=== PATIENT | female | born 1955 | race Caucasian/White ===

== ENCOUNTER 2016-10-31 09:11 | Inpatient (IN) | payer BC ==
[~2016-10-31] VITALS: Ht 162.6 cm; Wt 49.9 kg
[2016-10-31] MEDS ORDERED: SODIUM CHLORIDE 0.9% 1000ML 1,000 ML IV ONE (09:50)
[2016-10-31] MEDS ORDERED: SODIUM CHLORIDE 0.9% 1000ML 1,000 ML IV STA (09:50)
--- NOTE | 2016-10-31 10:14 | EMERGENCY ROOM VISIT NOTE ---
History Report prepared by Quique: Rivas Walker Under the Supervision of: Dr. Cory Jarrett M.D. First contact with patient: 09:39 Chief Complaint: PSYCHIATRIC PROBLEMS Stated Complaint: MANIC,PANIC ATTACKS,DEPRESSION History of Present Illness The patient is a 61 year old female who presents to the Emergency Room with complaints of worsening panic attacks for the past few weeks. The patient also complains of anxiety and fear, manic feelings, nausea, and decreased appetite. The patient has a history of psychiatric disorders and has been on varying medications. She notes that she her symptoms have not been this severe in the past. She has been hospitalized for her conditions in the past and usually does well with treatment. The patient started Hydrocortisone for a cortisol deficiency 3 months ago. The patient felt like she was doing really well. Then, all of a sudden, the patient started having panic attacks and experiencing the other symptoms. She also notes that she has been losing weight, crying, and not sleeping recently. The patient is taking 15 mg a day of Hydrocortisone and taking other medications as well. She denies any thoughts of trying to hurt herself, chest pain, or shortness of breath. Source of History: patient Onset: past few weeks Position: other (global) Timing: worsening Associated Symptoms: + nausea, No SOB, No chest pain Note: Other associated symptoms: anxiety, fear, manic feelings, decreased appetite, losing weight, crying, not sleeping Denies: any thoughts of trying to hurt herself Review of Systems See HPI for pertinent positives & negatives. A total of 10 systems reviewed and were otherwise negative. Past Medical & Surgical Medical Problems: (1) Anxiety (2) Bunion (3) Depression Old medical records were reviewed. Nurse's notes were reviewed and I agree with. Family History FH: cancer FH: gallbladder disease FH: heart disease FH: hypertension Kidney stone Social History Smoking Status: Never Smoker Alcohol Use: none Marital Status: Housing Status: lives with significant other Occupation Status: employed Current/Historical Medications Scheduled Estradiol (Estradiol), 3 MG TOP HS Hydrocortisone (Cortef), 5 MG PO DAILY Lorazepam (Ativan), 0.5 MG PO Q6H Progesterone (Prometrium), 100 MG SL HS Testosterone Cypionate (Testosterone Cypionate), 1 MG TOP DAILY Thyroid (Nature-Throid), 1 TAB PO QAM Allergies Coded Allergies: No Known Allergies (Unverified , 10/31/16) Physical Exam Vital Signs Date Time Temp Pulse Resp B/P Pulse Ox O2 Delivery O2 Flow Rate FiO2 10/31/16 16:01 83 16 109/58 100 Room Air 10/31/16 11:45 72 18 105/73 98 10/31/16 09:29 36.7 91 18 121/79 99 Room Air Physical Exam General: Teary-eyed, anxious, middle-aged female, no acute distress HEENT: Normal cephalic atraumatic. Pupils are equal round and reactive to light. Scleara anicteric. Extraocular movements are intact. Oropharynx is pink with moist mucous membranes. No swelling of the mouth lips or tongue. Neck: Supple with a midline trachea. No meningeal signs or stiffness, no JVD or bruits. No Stridor. Chest: Clear to auscultation bilaterally. No wheezes or rhonchi. No increased work of breathing. Heart: regular rate and rhythm. Abdomen: Soft nontender, nondistended without rebound guarding or rigidity. Extremities: No cyanosis clubbing or edema. No calf tenderness or assymetry Spine/Back. Non tender to palpation. No CVA tenderness Skin: Good turgor without rashes. Neurologic exam: Cranial nerves two through 12 are intact. Motor and sensation are intact and symmetrical throughout. Psych: Denies suicidal or homicidal ideation. Medical Decision & Procedures Laboratory Results 10/31/16 10:15 Red Blood Count 4.69, Mean Corpuscular Volume 95.9, Mean Corpuscular Hemoglobin 30.5, Mean Corpuscular Hemoglobin Concent 31.8, Mean Platelet Volume 10.1, Neutrophils (%) (Auto) 66.3, Lymphocytes (%) (Auto) 24.1, Monocytes (%) (Auto) 8.1, Eosinophils (%) (Auto) 0.7, Basophils (%) (Auto) 0.7, Neutrophils # (Auto) 4.50, Lymphocytes # (Auto) 1.64, Monocytes # (Auto) 0.55, Eosinophils # (Auto) 0.05, Basophils # (Auto) 0.05 10/31/16 10:15 Test 10/31/16 10:15 White Blood Count 6.80 K/uL (4.8-10.8) Red Blood Count 4.69 M/uL (4.2-5.4) Hemoglobin 14.3 g/dL (12.0-16.0) Hematocrit 45.0 % (37-47) Mean Corpuscular Volume 95.9 fL (80-100) Mean Corpuscular Hemoglobin 30.5 pg (25-34) Mean Corpuscular Hemoglobin Concent 31.8 g/dl (32-36) Platelet Count 284 K/uL (130-400) Mean Platelet Volume 10.1 fL (7.4-10.4) Neutrophils (%) (Auto) 66.3 % Lymphocytes (%) (Auto) 24.1 % Monocytes (%) (Auto) 8.1 % Eosinophils (%) (Auto) 0.7 % Basophils (%) (Auto) 0.7 % Neutrophils # (Auto) 4.50 K/uL (1.4-6.5) Lymphocytes # (Auto) 1.64 K/uL (1.2-3.4) Monocytes # (Auto) 0.55 K/uL (0.11-0.59) Eosinophils # (Auto) 0.05 K/uL (0-0.5) Basophils # (Auto) 0.05 K/uL (0-0.2) RDW Standard Deviation 42.4 fL (36.4-46.3) RDW Coefficient of Variation 12.1 % (11.5-14.5) Immature Granulocyte % (Auto) 0.1 % Immature Granulocyte # (Auto) 0.01 K/uL (0.00-0.02) Anion Gap 4.0 mmol/L (3-11) Est Creatinine Clear Calc Drug Dose 51.1 ml/min Estimated GFR () 78.9 Estimated GFR (Non- 68.1 BUN/Creatinine Ratio 19.1 (10-20) Calcium Level 9.2 mg/dl (8.5-10.1) Total Bilirubin 0.7 mg/dl (0.2-1) Direct Bilirubin 0.1 mg/dl (0-0.2) Aspartate Amino Transf (AST/SGOT) 21 U/L (15-37) Alanine Aminotransferase (ALT/SGPT) 37 U/L (12-78) Alkaline Phosphatase 57 U/L (45-117) Total Protein 6.8 gm/dl (6.4-8.2) Albumin 3.7 gm/dl (3.4-5.0) Lipase 208 U/L (73-393) Thyroid Stimulating Hormone (TSH) < 0.005 uIu/ml (0.300-4.500) Thyroxine (T4) 9.3 mcg/dl (4.5-10.9) Free Triiodothyronine 4.27 pg/ml (2.30-4.20) Random Cortisol 13.82 mcg/dl Ethyl Alcohol mg/dL < 3.0 mg/dl (0-3) Laboratory studies as stated above per my review. Medications Administered Medications (Trade) Dose Ordered Sig/Javy Route Start Time Stop Time Status Last Admin Dose Admin Sodium Chloride 1,000 ml @ 999 mls/hr Q1H1M STAT IV 10/31/16 09:50 10/31/16 10:50 DC 10/31/16 09:50 999 MLS/HR Sodium Chloride (Nss 1000ml) 1,000 ml @ 150 mls/hr Q6H40M ONCE IV 10/31/16 09:50 10/31/16 16:29 DC 10/31/16 11:44 150 MLS/HR ED Course 0946: Past medical records reviewed. The patient was evaluated in room A5, and a complete history and physical examination were performed. 0950: Ordered NSS 1000 ml@ 150 mls/hr IV, NSS 1000 ml @ 999 mls/hr IV. 1305: At this time, I reevaluated the patient and she was doing okay. 1331: At this time, I discussed the patient's case with Dr. Kramer - Urogynaecologist and he asked for further lab tests. 1415: At this time, I reevaluated the patient and she was talking to Urogynaecologist on the phone. 1443: At this time, I discussed the patient's case with Dr. Kramer - Urogynaecologist and we discussed lab results. We discussed decreasing the patient's thyroid from 160 to 130. He noted that he has been in touch with the patient and already updated her on this switch. 1455: At this time, [address] [place] [address] is evaluating the patient in the ED. Medical Decision Differential diagnoses include anxiety, depression, thyroid disease, electrolyte or metabolic abnormality, endocrine process, or toxicological process. This patient comes in as described above. She's had increasing anxiety and depression. She denies suicidal or homicidal ideations. She has been followed by textile engineer and they have been adjusting her TSH and her cortisols levels. she takes hydrocortisone 15 mg a day. This is new in the last couple months. She has not missed any dosages. Multiple blood tests was obtained. Her TSH is low. I did also T3 and T4 levels. With these being on the high end of normal, I think that she is hyperthyroid medications and needs to be cutdown .I discussed this at length with her textile engineer on the phone. Her random cortisol level was within normal limits given the day. The textile engineer had recommended she decrease her level from 162.5 to 1:30 on the thyroid. He has actually been text in her her phone as well. I had [place] our ER psychiatric case manage talked to the patient and she has consulted 3 S. see her for further treatment and evaluation and admission. Consults Time Called: [phone] Consulting Physician: Dr. Kramer - Urogynaecologist Returned Call: [phone] At this time, I discussed the patient's case with Dr. Kramer and he asked for further lab tests. Additional Consults: Time Called: [phone] Consulted Physician: Dr. Kramer - Urogynaecologist Returned Call: [phone] Additional Comments: At this time, I discussed the patient's case with Dr. Kramer and we discussed lab results. We discussed decreasing the patient's thyroid from 160 to 130. He noted that he has been in touch with the patient and already updated her on this switch. Impression Primary Impression: Depression Additional Impression: Anxiety Scribe Attestation The scribe's documentation has been prepared under my direction and personally reviewed by me in its entirety. I confirm that the note above accurately reflects all work, treatment, procedures, and medical decision making performed by me. Departure Information Dispostion [facility] ([address] [place] [address]) Referrals Alexa Sales M.D. (PCP) Problem Qualifiers
[2016-10-31 10:29] LABS: BASO % 0.7 %; BASO ABS # 0.05 K/uL (0-0.2); COMPLETE YES; EOS % 0.7 %; IG% 0.1 %; LYMPH % 24.1 %; LYMPH ABS # 1.64 K/uL (1.2-3.4); MEAN CELL VOLUME 95.9 fL (80-100); MEAN CORPUSCULAR HEMOGLOBIN 30.5 pg (25-34); MEAN CORPUSCULAR HGB CONC 31.8 g/dl (32-36); MEAN PLATELET VOLUME 10.1 fL (7.4-10.4); MONO % 8.1 %; NEUT % 66.3 %; PLATELET COUNT 284 K/uL (130-400); RED BLOOD COUNT 4.69 M/uL (4.2-5.4)
[2016-10-31] MEDS ORDERED: TEST1INJ6 TOP (10:42)
[2016-10-31] MEDS ORDERED: HYDR5TAB PO (10:42)
[2016-10-31] MEDS ORDERED: THYR16.2 PO (10:42)
[2016-10-31] MEDS ORDERED: LORA-741 PO (10:42)
[2016-10-31] MEDS ORDERED: PROG100C6 SL (10:42)
[2016-10-31] MEDS ORDERED: [UNRECOGNIZED DRUG - CODE] TOP (10:42)
[2016-10-31 10:53] LABS: ALT/SGPT 37 U/L (12-78); AST/SGOT 21 U/L (15-37); BLOOD UREA NITROGEN 17 mg/dl (7-18); BUN/CREATININE RATIO 19.1 (10-20); CALCIUM 9.2 mg/dl (8.5-10.1); CARBON DIOXIDE 29 mmol/L (21-32); CHLORIDE 108 mmol/L (98-107); CREATININE 0.91 mg/dl (0.60-1.20); GLUCOSE 95 mg/dl (70-99); POTASSIUM 4.2 mmol/L (3.5-5.1); SODIUM 141 mmol/L (136-145)
[2016-10-31 11:04] LABS: ALKALINE PHOSPHATASE 57 U/L (45-117); THYROID STIMULATING HORMONE < 0.005 uIu/ml (0.300-4.500)
[2016-10-31] MEDS ORDERED: ALUMINUM/MAGNESIUM SUSP 30 ML UDC PO PRN (17:00)
[2016-10-31] MEDS ORDERED: SODIUM CHLORIDE 0.65% NA SOLN 45 ML (OCEAN) PRN (17:00)
[2016-10-31] MEDS ORDERED: hydrOXYzine HCL 25 MG TAB PO PRN (17:00)
[2016-10-31] MEDS ORDERED: MAGNESIUM HYDROXIDE SUSP 30 ML UDC PO PRN (17:00)
[2016-10-31] MEDS ORDERED: NON-FORMULARY MEDICATION SCH ×2 (17:00)
[2016-10-31] MEDS ORDERED: ACETAMINOPHEN 325 MG TAB PO PRN (17:00)
[2016-10-31] MEDS ORDERED: BISMUTH SUBSALICYLATE PER ML OMNICELL CHARGE PO PRN (17:00)
[2016-10-31 17:45] LABS: BENZODIAZEPINE, URINE NEG (NEG); COCAINE,URINE NEG (NEG); PHENCYCLIDINE, URINE NEG (NEG)
[2016-10-31] MEDS ORDERED: THYR1TAB15 PO (17:57)
[2016-10-31] MEDS ORDERED: [UNRECOGNIZED DRUG - CODE] TD (17:57)
[2016-10-31] MEDS ORDERED: ZOLP10TA6 PO (17:57)
[2016-10-31 19:00] VITALS: O2SAT 99
[2016-10-31] MEDS: LORAZEPAM 0.5 MG TAB PO SCH (19:16)
[2016-10-31 20:15] VITALS: BP 117/64; PULSE 76; TEMP 36.7; Ht 162.6 cm; Wt 49.9 kg
[2016-10-31] MEDS ORDERED: PROMETRIUM 100 MG SL SCH (22:00)
[2016-10-31] MEDS ORDERED: NURSING VERBAL MED ORDER ONE (22:00)
[2016-10-31] MEDS: hydrOXYzine HCL 25 MG TAB PO PRN (22:14)
[2016-11-01] MEDS: LORAZEPAM 0.5 MG TAB PO SCH ×4 (00:03→06:57)
[2016-11-01 08:17] VITALS: BP 105/72; PULSE 86; TEMP 37.1
[2016-11-01] MEDS: TESTOSTERONE EXT SCH (08:26)
[2016-11-01] MEDS: HYDROCORTISONE 10 MG TAB PO SCH (08:26)
[2016-11-01] MEDS: THYROID 162.5 MG PO SCH (08:28)
[2016-11-01] MEDS: PROMETRIUM 100 MG SL SCH (08:29)
[2016-11-01] MEDS ORDERED: LORAZEPAM 0.5 MG TAB PO PRN (12:00)
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
[2016-11-01] MEDS: TRAZODONE HCL 50 MG TAB PO SCH (21:47)
[2016-11-01] MEDS: hydrOXYzine HCL 25 MG TAB PO PRN (23:12)
[2016-11-02] MEDS: hydrOXYzine HCL 25 MG TAB PO PRN ×3 (00:32→22:37)
[2016-11-02 07:05] VITALS: BP_SYST 78; BP_SYST 85; BP_DIAS 50; BP_DIAS 58; PULSE 65; TEMP 36.8
[2016-11-02] MEDS: HYDROCORTISONE 10 MG TAB PO SCH (08:25)
[2016-11-02] MEDS: THYROID 162.5 MG PO SCH (08:26)
[2016-11-02] MEDS: PROMETRIUM 100 MG SL SCH (08:27)
[2016-11-02] MEDS: TESTOSTERONE EXT SCH (08:27)
--- NOTE | 2016-11-02 13:08 | Psychiatric Progress Notes ---
Progress Note Date of Service Nov 02, 2016. Interval History Shelley Oneil is a 61-year-old female who currently lives in [place], [place] with her . She was admitted on a 201 commitment. Patient is admitted from home after presenting to ER for a mental health evaluation. She has been increasingly depressed and anxious over the past 2 weeks to the point of being unable to function/care for herself. The patient was brought to the ED by her sisters. Information provided by the patient is considered to be reliable. Chief Complaint "I'm really anxious". Subjective Patient was seen & assessed interval progress reviewed with treatment team. Patient reports continue elevated anxiety. She did not sleep well even though took Trazodone and Vistaril. She reports that she was unable to stay at home alone prior to admission. She reports "I did not feel safe by myself." She denies suicidal intention or plan but would start screaming out loud "I can't do this anymore" when she was a lone. She is wringing her hands and describes mood as "anxious and really bad." She is having difficulty making decisions about medications and if fearful that she will have side effects and is most concerned about weight gain. We reviewed past medications again and says that she believes she took buspar in the past and "wired me up." She thinks she may have tried Cymbalta last year but in combination with Effexor. We received a med list from Dr. Quick which indicates that she was prescribed Nardil but didn' t start and was taking Ambien 10 mg as needed. The patient was only sleeping 2 hours/night and then taking another Ambien and sleeping another 2 hours. However for the 4 nights before she came to the hospital she was sleeping less than this. Review of Systems Constitutional: No chills, No fatigue, No fever, No problem reported, No sweats , No weakness, No weight loss Cardiovascular: No PND, No chest pain, No claudication, No edema, No orthopnea , No palpitations, No problem reported Abdomen: No GI bleeding, No constipation, No diarrhea, No nausea, No pain, No problem reported, No vomiting Psychiatric: + anxiety, + depression symptoms, + insomnia Sleep Information Total Hours of Sleep: 5.50 Meal Information Percent of Breakfast Consumed: 100 Percent of Lunch Consumed: 75 Percent of Dinner Consumed: 75 Mental Status Exam During interview pt is: alert and oriented Appearance: appropriately dressed, appropriately groomed Eye contact is: good Motor behavior is: steady gait & station, no abnormal motor movements Speech: normal in rate, rhythm & volume Affect: tearful, anxious, constricted Mood is: depressed, anxious Thought process: goal directed, linear, logical, clear, coherent Suicidal thought are: denied (states "I can't do this any more." ), Plan: denied, Intent: denied Homicidal thoughts are: denied Hallucinations: denies auditory, denies visual Cognition: memory grossly intact, attention grossly intact Intelligence estimated to be: average Insight: impaired Judgement: impaired Summary of Past History Prozac Zoloft Effexor [place] Depakote, Amitriptyline Wellbutrin Seroquel Ambien Klonopin Ativan Impression Patient is a 61 year old female with history of anxiety and depression and eating disorder. She has been struggling with sleep over the past 2 years and anxiety has increased over the past several months and over the past 2 weeks has been elevated to point that she has been unable to function at home. She is not eating or sleeping. She has been in contact with her rn women services and psychiatrist with some adjustment of medication, however her symptoms have continued to worse. She requires inpatient treatment due to inability or care of herself. It is unclear at this time how her endocrine issues and eating disorder are affecting her presentation. The ER physician consulted her rn women services, however the patient is still concerned that she is not being given what he recommenced. Complex case; Anxiety Panic Disorder Depression Eating disorder, unspecified Plan (1) Anxiety 11/01 Patient admitted to locked unit with q 15 minute safety checks She will need a family meeting Coordinate care without patient providers. She wishes us to contact her rn women services to clarify medications as feels she is supposed to be taking more cortef and less thyroid medications. Tired to call office put it was closed for the day. [phone]. Vistaril or Ativan prn for anxiety She is reluctant to take any medications that will make her feel tired or have risk of weight gain. Patient agrees to retrial Trazodone for sleep tonight as this medication worked well in the past but then stop working several months ago. 11/02 Again reviewed past medications. Discussed Cymbalta or Buspar as possible options. Patient felt buspar make her feel wired in the past and that if she took cymbalta it was in combination with Effexor and it didn't seem helpful. She is willing to retrial Cymbalta since this medication is weight neutral. Discussed remeron but patient declined due to risk of weight gain. Discussed risks, benefits and alternatives for Cymbalta including but not limited to black box warning for suicidality. Will start at 30 daily. Patient has an appointment for neurofeedback on November 08 and is hoping this will be effective or insomnia. Will hold thyroid medication tomorrow. Patient agrees. family meeting with on phone today. (2) Depression Patient should be encouraged to participate in groups and individual counseling and to work on healthy coping skills. 11/02 - Patient is willing to start Cymbalta see plan above (3) Eating disorder 11/01 Monitor patient's intake Patient is interested in seeing an eating disorder therapist. Will offer dietary consult. Discharge / Aftercare Planning Primary Care Physician: Name: Dr Jeannie Davis; [facility]rapist: Name: Stefany Dorantes [place], [place] Date of Appointment: November 07, 2016 Time of Appointment: 2pm Visit Code E&M Code: 50882 Inventory Assets Strengths: willingness for treatment knowledgeable about treatment options Supportive family Needs: inpatient treatment and stabilization Risk Factors Assessment : Yes Health problems: Yes Mental Health Diagnoses: Yes Substance use disorders: No Previous attempt: No Family history of suicide: No Previous psychiatric stay: Yes Hopelessness: No Smoker: No Protective Factors Assessment Sikh beliefs: No : Yes Responsible for young children: No Employed: Yes Stable relationships: Yes Supportive family: Yes Good rapport with provider: Yes Data Vital Signs Last 24 Hrs: Date Time Temp Pulse Resp B/P Pulse Ox O2 Delivery O2 Flow Rate FiO2 11/02/16 07:05 36.8 65 18 78/50 65 85/58 Meds Administered Last 24 Hrs: Meds Administered (Past 24Hrs) Medications (Trade) Dose Ordered Sig/Javy Route Start Time Stop Time Status Last Admin Dose Admin Hydroxyzine HCl (Vistaril Tab) 50 mg HSZ PRN PO 10/31/16 17:00 11/30/16 16:59 11/02/16 00:32 50 MG Hydrocortisone (Cortef Tab) 5 mg DAILY PO 11/01/16 09:00 12/01/16 08:59 11/02/16 08:25 5 MG Lorazepam (Ativan Tab) 0.5 mg Q6H PO 10/31/16 18:00 11/01/16 08:57 DC 10/31/16 19:16 0.5 MG Non-Formulary Medication 1 ea DAILY EXT 11/01/16 09:00 12/01/16 08:59 11/02/16 08:27 1 EA Thyroid (Nature-Throid) 162.5 mg DAILY PO 11/01/16 09:00 12/01/16 08:59 11/02/16 08:26 162.5 MG Non-Formulary Medication (Non-Formulary Patient'S Own Med) 1 ea QAM SL 11/01/16 09:00 12/01/16 08:59 11/02/16 08:27 1 EA Lorazepam (Ativan Tab) 0.5 mg Q6H PRN PO 11/01/16 12:00 12/01/16 11:59 11/01/16 15:41 0.5 MG Trazodone HCl (Desyrel Tab) 50 mg HS PO 11/01/16 22:00 12/01/16 21:59 11/01/16 21:47 50 MG Problem Qualifiers (1) Depression: Depression Type: major depressive disorder Major depression recurrence: recurrent Major depression episode severity: unspecified
[2016-11-02] MEDS ORDERED: DULOXETINE (CYMBALTA) 30 MG CAP PO ONE (13:43)
[2016-11-02] MEDS ORDERED: NON-FORMULARY MEDICATION SCH (15:30)
[2016-11-02] MEDS: ESTRADIOL EXT SCH (21:06)
[2016-11-02] MEDS: TRAZODONE HCL 50 MG TAB PO SCH (21:07)
[2016-11-03 07:09] VITALS: BP_SYST 76; BP_SYST 93; BP_DIAS 46; BP_DIAS 58; PULSE 56; PULSE 73; TEMP 36.9
[2016-11-03] MEDS: HYDROCORTISONE 10 MG TAB PO SCH (08:46)
[2016-11-03] MEDS: DULOXETINE (CYMBALTA) 30 MG CAP PO SCH (08:46)
[2016-11-03] MEDS: PROMETRIUM 100 MG SL SCH (08:47)
[2016-11-03] MEDS: TESTOSTERONE EXT SCH (08:51)
[2016-11-03] MEDS ORDERED: ESTRADIOL EXT SCH (09:00)
--- NOTE | 2016-11-03 09:17 | Psychiatric Progress Notes ---
Progress Note Date of Service Nov 03, 2016. Interval History Shelley Oneil is a 61-year-old female who currently lives in [place], [place] with her . She was admitted on a 201 commitment. Patient is admitted from home after presenting to ER for a mental health evaluation. She has been increasingly depressed and anxious over the past 2 weeks to the point of being unable to function/care for herself. The patient was brought to the ED by her sisters. Information provided by the patient is considered to be reliable. Chief Complaint "Last night I felt the dread coming on". Subjective Patient was seen & assessed interval progress reviewed with nursing. Staff report she had a meeting with her and they reviewed her stressors and symptoms. They believe her poor sleep is one of her primary triggers. Sleep is improved here, got 6.25 hours last night. She is going to groups and engaged in treatment, and is tolerating Cymbalta well. In the meeting her guns were discussed as well as recommendations to secure them until she is stable, and both she and her refused to do so, feeling that it was not necessary. Today she says she was doing a bit better, but then last night "felt the dread coming on," which is what usually causes her to "get hysterical, don't want to get out of bed, that's been what I've been dealing with." She called her and he encouraged her to keep working on her symptoms, as she has not been able to function at home. She wondered if the Cymbalta "gave me anxiety," although she admits the symptoms are the same ones she has been dealing with for years with her anxiety. She expresses frustration that her symptoms were well controlled on Effexor for years "but then it just stopped working, and now nothing works." She reviews her history, including worsening of symptoms when she started steroids and stimulants. Sleep Information Total Hours of Sleep: 6.25 Meal Information Percent of Breakfast Consumed: 100 Percent of Lunch Consumed: 100 Percent of Dinner Consumed: 90 Mental Status Exam During interview pt is: alert and oriented Appearance: appropriately dressed, appropriately groomed Eye contact is: good Motor behavior is: steady gait & station, psychomotor agitation (wringing hands ) Speech: normal in rate, rhythm & volume Affect: anxious, constricted Mood is: depressed, anxious Thought process: goal directed, linear, logical, clear, coherent Suicidal thought are: denied (but feels unable to leave the hospital as cannot function or cope), Plan: denied, Intent: denied Homicidal thoughts are: denied Hallucinations: denies auditory, denies visual Cognition: memory grossly intact, attention grossly intact Intelligence estimated to be: average Insight: impaired Judgement: impaired Summary of Past History Prozac Zoloft Effexor House Depakote, Amitriptyline Wellbutrin Seroquel Ambien Klonopin Ativan Impression Patient is a 61 year old female with history of anxiety and depression and eating disorder. She has been struggling with sleep over the past 2 years and anxiety has increased over the past several months and over the past 2 weeks has been elevated to point that she has been unable to function at home. She is not eating or sleeping. She has been in contact with her field nurse case manager and psychiatrist with some adjustment of medication, however her symptoms have continued to worse. She requires inpatient treatment due to inability or care of herself. It is unclear at this time how her endocrine issues and eating disorder are affecting her presentation. The ER physician consulted her field nurse case manager. Complex case; Anxiety Panic Disorder Depression Eating disorder, unspecified Plan (1) Anxiety 11/01 Patient admitted to locked unit with q 15 minute safety checks She will need a family meeting Coordinate care without patient providers. She wishes us to contact her field nurse case manager to clarify medications as feels she is supposed to be taking more cortef and less thyroid medications. Tired to call office put it was closed for the day. [phone]. Vistaril or Ativan prn for anxiety She is reluctant to take any medications that will make her feel tired or have risk of weight gain. Patient agrees to retrial Trazodone for sleep tonight as this medication worked well in the past but then stop working several months ago. 11/02 Again reviewed past medications. Discussed Cymbalta or Buspar as possible options. Patient felt buspar make her feel wired in the past and that if she took cymbalta it was in combination with Effexor and it didn't seem helpful. She is willing to retrial Cymbalta since this medication is weight neutral. Discussed remeron but patient declined due to risk of weight gain. Discussed risks, benefits and alternatives for Cymbalta including but not limited to black box warning for suicidality. Will start at 30 daily. Patient has an appointment for neurofeedback on November 08 and is hoping this will be effective or insomnia. Will hold thyroid medication tomorrow. Patient agrees. family meeting with on phone today. 11/03 Continue duloxetine 30mg daily. Tolerating well. May increase to 60mg daily tomorrow. (2) Depression Patient should be encouraged to participate in groups and individual counseling and to work on healthy coping skills. 11/02 - Patient is willing to start Cymbalta see plan above (3) Eating disorder 11/01 Monitor patient's intake Patient is interested in seeing an eating disorder therapist. Will offer dietary consult. (4) Cortisol deficiency Continue home meds. 11/03 - pt states home meds are still not right, as she takes everything in the AM. Corrected med rec and will move to am. Discharge / Aftercare Planning Primary Care Physician: Name: Dr Jeannie Davis; [facility] Psychiatrist: Name: Dr. Сергей Quick [place] Therapist: Name: Stefany Dorantes [place], [place] Date of Appointment: November 07, 2016 Time of Appointment: 2pm Visit Code E&M Code: 77814 Inventory Assets Strengths: willingness for treatment knowledgeable about treatment options Supportive family Needs: inpatient treatment and stabilization Risk Factors Assessment : Yes Health problems: Yes Mental Health Diagnoses: Yes Substance use disorders: No Previous attempt: No Family history of suicide: No Previous psychiatric stay: Yes Hopelessness: No Smoker: No Protective Factors Assessment Yarsani beliefs: No : Yes Responsible for young children: No Employed: Yes Stable relationships: Yes Supportive family: Yes Good rapport with provider: Yes Data Vital Signs Last 24 Hrs: Date Time Temp Pulse Resp B/P Pulse Ox O2 Delivery O2 Flow Rate FiO2 11/03/16 07:09 36.9 56 16 93/58 73 76/46 Meds Administered Last 24 Hrs: Meds Administered (Past 24Hrs) Medications (Trade) Dose Ordered Sig/Javy Route Start Time Stop Time Status Last Admin Dose Admin Lorazepam (Ativan Tab) 0.5 mg Q6H PRN PO 11/01/16 12:00 12/01/16 11:59 11/01/16 15:41 0.5 MG Trazodone HCl (Desyrel Tab) 50 mg HS PO 11/01/16 22:00 12/01/16 21:59 11/01/16 21:47 50 MG Duloxetine HCl (Cymbalta Cap) 30 mg QAM PO 11/03/16 09:00 12/03/16 08:59 11/03/16 08:46 30 MG Duloxetine HCl (Cymbalta Cap) 30 mg 1343 ONCE PO 11/02/16 13:43 11/02/16 13:53 DC 11/02/16 14:12 30 MG Non-Formulary Medication (Non-Formulary Patient'S Own Med) 1 ea HS EXT 11/02/16 22:00 12/02/16 21:59 11/02/16 21:06 1 EA Problem Qualifiers (1) Depression: Depression Type: major depressive disorder Major depression recurrence: recurrent Major depression episode severity: unspecified
[2016-11-03] MEDS: hydrOXYzine HCL 25 MG TAB PO PRN (21:41)
[2016-11-03] MEDS: ESTRADIOL EXT SCH (21:42)
[2016-11-03] MEDS: TRAZODONE HCL 50 MG TAB PO SCH (21:43)
[2016-11-04 07:03] VITALS: BP_SYST 70; BP_SYST 94; BP_DIAS 48; BP_DIAS 60; PULSE 71; PULSE 80; TEMP 36.5
--- NOTE | 2016-11-04 08:01 | Psychiatric Progress Notes ---
Progress Note Date of Service Nov 04, 2016. Interval History Shelley Oneil is a 61-year-old female who currently lives in [place], [place] with her . She was admitted on a 201 commitment. Patient is admitted from home after presenting to ER for a mental health evaluation. She has been increasingly depressed and anxious over the past 2 weeks to the point of being unable to function/care for herself. The patient was brought to the ED by her sisters. Information provided by the patient is considered to be reliable. Chief Complaint "I didn't sleep really well". Subjective Patient was seen & assessed interval progress reviewed with nursing. Staff report she is going to groups and participating appropriately. 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 She has had insomnia for about 10 years, and says that his been severe for the past 2 years. She tried many different sleep medications, all of which have been either ineffective or partially effective. She typically takes one dose of medication at bedtime, then wakes up 4 hours later and takes another dose. She has worked on improving her sleep hygiene, and states that she has no TV in her bedroom, tries to go to bed at the same time each night, and doesn't drink caffeine. She will sometimes get out of bed if she wakes up in the middle of the night and try to do something call meeting, such as watching TV. Last night , she says she woke up at 3 AM and could not fall back asleep and "that's when the negative stuff starts mounting, things aren't going to get any better, going to be doing this for the rest of my life." Despite not sleeping well, she made herself get up this morning, get dressed, and attend groups. She states she is very worried about going home, as her insomnia is her primary problem, and that is when her mood and anxiety are at their worst. She denies side effects to the duloxetine, and is willing to increase her dose today. She denies suicidal thoughts. Her appetite has improved here, and she is eating better. Sleep Information Total Hours of Sleep: 7.50 Meal Information Percent of Breakfast Consumed: 90 Percent of Lunch Consumed: 90 Percent of Dinner Consumed: 90 Mental Status Exam During interview pt is: alert and oriented, cooperative Appearance: appropriately dressed, appropriately groomed Eye contact is: good Motor behavior is: steady gait & station, no abnormal motor movements Speech: normal in rate, rhythm & volume Affect: anxious, constricted Mood is: anxious Thought process: goal directed, linear, logical, clear, coherent Thought content: reality based without delusions Suicidal thought are: denied (but feels unable to leave the hospital as cannot function or cope), Plan: denied, Intent: denied Homicidal thoughts are: denied Hallucinations: denies auditory, denies visual Cognition: memory grossly intact, attention grossly intact Intelligence estimated to be: average Insight: impaired Judgement: impaired Summary of Past History Prozac Zoloft Effexor [place] Depakote, Amitriptyline Wellbutrin Seroquel Ambien Klonopin Ativan Impression Patient is a 61 year old female with history of anxiety and depression and eating disorder. She has been struggling with sleep over the past 2 years and anxiety has increased over the past several months and over the past 2 weeks has been elevated to point that she has been unable to function at home. She is not eating or sleeping. She has been in contact with her job setter and psychiatrist with some adjustment of medication, however her symptoms have continued to worse. She requires inpatient treatment due to inability or care of herself. It is unclear at this time how her endocrine issues and eating disorder are affecting her presentation. The ER physician consulted her job setter. Complex case; Anxiety Panic Disorder Depression Eating disorder, unspecified Plan (1) Anxiety 11/01 Patient admitted to locked unit with q 15 minute safety checks She will need a family meeting Coordinate care without patient providers. She wishes us to contact her job setter to clarify medications as feels she is supposed to be taking more cortef and less thyroid medications. Tired to call office put it was closed for the day. [phone]. Vistaril or Ativan prn for anxiety She is reluctant to take any medications that will make her feel tired or have risk of weight gain. Patient agrees to retrial Trazodone for sleep tonight as this medication worked well in the past but then stop working several months ago. 11/02 Again reviewed past medications. Discussed Cymbalta or Buspar as possible options. Patient felt buspar make her feel wired in the past and that if she took cymbalta it was in combination with Effexor and it didn't seem helpful. She is willing to retrial Cymbalta since this medication is weight neutral. Discussed remeron but patient declined due to risk of weight gain. Discussed risks, benefits and alternatives for Cymbalta including but not limited to black box warning for suicidality. Will start at 30 daily. Patient has an appointment for neurofeedback on November 08 and is hoping this will be effective or insomnia. Will hold thyroid medication tomorrow. Patient agrees. family meeting with on phone today. 11/03 Continue duloxetine 30mg daily. Tolerating well. May increase to 60mg daily tomorrow. 11/04 Increase duloxetine to 60 mg daily to target ongoing anxiety. (2) Depression Patient should be encouraged to participate in groups and individual counseling and to work on healthy coping skills. 11/02 - Patient is willing to start Cymbalta see plan above (3) Insomnia Chronic issue, going on for about 10 years, with poor or only partial response to multiple sleep medications. Ambien stopped is no longer effective. She feels trazodone has a paradoxical effect. We will continue Vistaril for now. 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 Explored concepts of brief behavioral intervention for sleep, and encouraged her to consider working specifically on sleep or sleeps CBT with her outpatient therapist. Also discussed that it is unlikely her insomnia will resolve here, given its chronicity. Discussed a plan to get up and do something call me if she awakens in the night and cannot fall back to sleep quickly, such as reading or deep breathing, returning to bed when she again feels sleepy. She is scheduled for an intake for neural feedback to work on her sleep issues on 11/08. (4) Eating disorder 11/01 Monitor patient's intake Patient is interested in seeing an eating disorder therapist. Will offer dietary consult. (5) Cortisol deficiency Continue home meds. 11/03 - pt states home meds are still not right, as she takes everything in the AM. Corrected med rec and will move to am. Discharge / Aftercare Planning Primary Care Physician: Name: Dr Jeannie Davis; [facility] Psychiatrist: Name: Addy Vasquez Therapist: Name: Nell Serrano [place] Date of Appointment: November 07, 2016 Time of Appointment: 2pm Visit Code E&M Code: 50974 Inventory Assets Strengths: willingness for treatment knowledgeable about treatment options Supportive family Needs: inpatient treatment and stabilization Risk Factors Assessment : Yes Health problems: Yes Mental Health Diagnoses: Yes Substance use disorders: No Previous attempt: No Family history of suicide: No Previous psychiatric stay: Yes Hopelessness: No Smoker: No Protective Factors Assessment Confucianism beliefs: No : Yes Responsible for young children: No Employed: Yes Stable relationships: Yes Supportive family: Yes Good rapport with provider: Yes Data Vital Signs Last 24 Hrs: Date Time Temp Pulse Resp B/P Pulse Ox O2 Delivery O2 Flow Rate FiO2 11/04/16 07:03 36.5 71 16 94/60 80 70/48 Meds Administered Last 24 Hrs: Meds Administered (Past 24Hrs) Medications (Trade) Dose Ordered Sig/Javy Route Start Time Stop Time Status Last Admin Dose Admin Duloxetine HCl (Cymbalta Cap) 30 mg QAM PO 11/03/16 09:00 12/03/16 08:59 11/03/16 08:46 30 MG Duloxetine HCl (Cymbalta Cap) 30 mg 1343 ONCE PO 11/02/16 13:43 11/02/16 13:53 DC 11/02/16 14:12 30 MG Non-Formulary Medication (Non-Formulary Patient'S Own Med) 1 ea HS EXT 11/02/16 22:00 11/03/16 21:42 1 EA Problem Qualifiers (1) Depression: Depression Type: major depressive disorder Major depression recurrence: recurrent Major depression episode severity: unspecified
[2016-11-04] MEDS: PROMETRIUM 100 MG SL SCH (08:32)
[2016-11-04] MEDS: DULOXETINE (CYMBALTA) 30 MG CAP PO SCH (08:32)
[2016-11-04] MEDS: HYDROCORTISONE 10 MG TAB PO SCH (08:35)
[2016-11-04] MEDS: TESTOSTERONE EXT SCH (08:37)
[2016-11-04] MEDS: THYROID 162.5 MG PO SCH (09:24)
[2016-11-04] MEDS: ESTRADIOL EXT SCH (21:21)
[2016-11-04] MEDS: TRAZODONE HCL 50 MG TAB PO SCH (21:22)
[2016-11-04] MEDS: hydrOXYzine HCL 25 MG TAB PO PRN (22:51)
[2016-11-05] MEDS: hydrOXYzine HCL 25 MG TAB PO PRN ×2 (00:07→22:39)
[2016-11-05 07:05] VITALS: BP_SYST 87; BP_SYST 93; BP_DIAS 56; BP_DIAS 59; PULSE 69; PULSE 82; TEMP 36.6
[2016-11-05] MEDS: TESTOSTERONE EXT SCH (08:05)
[2016-11-05] MEDS: DULOXETINE (CYMBALTA) 30 MG CAP PO SCH (08:06)
[2016-11-05] MEDS: HYDROCORTISONE 10 MG TAB PO SCH (08:06)
[2016-11-05] MEDS: THYROID 162.5 MG PO SCH (08:07)
[2016-11-05] MEDS: PROMETRIUM 100 MG SL SCH (08:08)
--- NOTE | 2016-11-05 11:00 | Psychiatric Progress Notes ---
Progress Note Date of Service November 05, 2016. Interval History Shelley Oneil is a 61-year-old female who currently lives in [place], [place] with her . She was admitted on a 201 commitment. Patient is admitted from home after presenting to ER for a mental health evaluation. She has been increasingly depressed and anxious over the past 2 weeks to the point of being unable to function/care for herself. The patient was brought to the ED by her sisters. Information provided by the patient is considered to be reliable. Chief Complaint "I have high anxiety". Subjective Patient was seen & assessed interval progress reviewed with Treatment Team. The patient says that she remains anxious in anticipation of discharge, worrying that she will be no better and have to have someone with her at all times. She says that her doesn't understand her anxiety and thinks that when she comes out of the hospital, she should be all better. She relies on exercise to help her anxiety and will look forward to getting back to that after discharge. she is also worried about the amount of work she will have after being in the hospital this week. She denies SI/HI. She reports only sleeping for 4.5 hours last night, and worries about this since she was able to sleep better when she first was admitted. She would like to return to [employer], as it worked in the past, but we discussed the impairments that can go along with Ambien use in women. Review of Systems Constitutional: No chills, No fatigue, No fever, No problem reported, No sweats , No weakness, No weight loss ENT: No dental problems, No hearing loss, No nasal symptoms, No problem reported, No sore throat, No tinnitus, No trouble swallowing, No unusual epistaxis Respiratory: No cough, No dyspnea at rest, No dyspnea on exertion, No hemoptysis, No problem reported, No shortness of breath, No sputum, No wheezing Cardiovascular: No PND, No chest pain, No claudication, No edema, No orthopnea , No palpitations, No problem reported Abdomen: No GI bleeding, No constipation, No diarrhea, No nausea, No pain, No problem reported, No vomiting Musculoskeletal: No calf pain, No joint pain, No muscle pain, No problem reported, No swelling Neurologic: No balance problems, No memory loss, No numbness/tingling, No paralysis, No problem reported, No vertigo, No weakness Psychiatric: + anxiety, + insomnia Sleep Information Total Hours of Sleep: 4.50 Meal Information Percent of Breakfast Consumed: 90 Percent of Lunch Consumed: 100 Percent of Dinner Consumed: 95 Mental Status Exam During interview pt is: alert and oriented, cooperative Appearance: appropriately dressed, appropriately groomed Eye contact is: good Motor behavior is: steady gait & station, no abnormal motor movements Speech: normal in rate, rhythm & volume Affect: anxious, constricted Mood is: anxious Thought process: goal directed, linear, logical, clear, coherent Thought content: reality based without delusions Suicidal thought are: denied (but feels unable to leave the hospital as cannot function or cope), Plan: denied, Intent: denied Homicidal thoughts are: denied Hallucinations: denies auditory, denies visual Cognition: memory grossly intact, attention grossly intact Intelligence estimated to be: average Insight: limited Judgement: limited Summary of Past History Prozac Zoloft Effexor [place] Depakote, Amitriptyline Wellbutrin Seroquel Ambien Klonopin Ativan Impression Patient remains anxious about discharge, wishing she felt better before going home. She is tolerating the Cymbalta, but is worried that it won't work. We anticipate discharge tomorrow as she is improving to the point of not needing a protective environment. Plan (1) Anxiety 11/01 Patient admitted to locked unit with q 15 minute safety checks She will need a family meeting Coordinate care without patient providers. 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 Tired to call office put it was closed for the day. [phone]. Vistaril or Ativan prn for anxiety She is reluctant to take any medications that will make her feel tired or have risk of weight gain. Patient agrees to retrial Trazodone for sleep tonight as this medication worked well in the past but then stop working several months ago. 11/02 Again reviewed past medications. Discussed Cymbalta or Buspar as possible options. Patient felt buspar make her feel wired in the past and that if she took cymbalta it was in combination with Effexor and it didn't seem helpful. She is willing to retrial Cymbalta since this medication is weight neutral. Discussed remeron but patient declined due to risk of weight gain. Discussed risks, benefits and alternatives for Cymbalta including but not limited to black box warning for suicidality. Will start at 30 daily. Patient has an appointment for neurofeedback on November 08 and is hoping this will be effective or insomnia. Will hold thyroid medication tomorrow. Patient agrees. family meeting with on phone today. 11/03 Continue duloxetine 30mg daily. Tolerating well. May increase to 60mg daily tomorrow. 11/04 Increase duloxetine to 60 mg daily to target ongoing anxiety. 11/05 - Continue current meds (2) Depression Patient should be encouraged to participate in groups and individual counseling and to work on healthy coping skills. 11/02 - Patient is willing to start Cymbalta see plan above (3) Insomnia Chronic issue, going on for about 10 years, with poor or only partial response to multiple sleep medications. Ambien stopped is no longer effective. She feels trazodone has a paradoxical effect. We will continue Vistaril for now. 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 Explored concepts of brief behavioral intervention for sleep, and encouraged her to consider working specifically on sleep or sleeps CBT with her outpatient therapist. Also discussed that it is unlikely her insomnia will resolve here, given its chronicity. Discussed a plan to get up and do something call me if she awakens in the night and cannot fall back to sleep quickly, such as reading or deep breathing, returning to bed when she again feels sleepy. She is scheduled for an intake for neural feedback to work on her sleep issues on 11/08. (4) Eating disorder 11/01 Monitor patient's intake Patient is interested in seeing an eating disorder therapist. Will offer dietary consult. (5) Cortisol deficiency Continue home meds. 11/03 - pt states home meds are still not right, as she takes everything in the AM. Corrected med rec and will move to am. Discharge / Aftercare Planning Primary Care Physician: Name: Dr Jeannie Davis; [facility] Psychiatrist: Name: Dr. Сергей Quick [place] Therapist: Name: Stefany Dorantes, [place], [place] Date of Appointment: November 07, 2016 Time of Appointment: 2pm Inventory Assets Strengths: willingness for treatment knowledgeable about treatment options Supportive family Needs: inpatient treatment and stabilization Risk Factors Assessment : Yes Health problems: Yes Mental Health Diagnoses: Yes Substance use disorders: No Previous attempt: No Family history of suicide: No Previous psychiatric stay: Yes Hopelessness: No Smoker: No Protective Factors Assessment Mosque beliefs: No : Yes Responsible for young children: No Employed: Yes Stable relationships: Yes Supportive family: Yes Good rapport with provider: Yes Data Vital Signs Last 24 Hrs: Date Time Temp Pulse Resp B/P Pulse Ox O2 Delivery O2 Flow Rate FiO2 11/05/16 07:05 36.6 69 16 93/59 82 87/56 Meds Administered Last 24 Hrs: Meds Administered (Past 24Hrs) Medications (Trade) Dose Ordered Sig/Javy Route Start Time Stop Time Status Last Admin Dose Admin Duloxetine HCl (Cymbalta Cap) 60 mg QAM PO 11/05/16 09:00 12/05/16 08:59 11/05/16 08:06 60 MG Lab Results Last 24 Hrs: 10/31/16 10:15 Red Blood Count 4.69, Mean Corpuscular Volume 95.9, Mean Corpuscular Hemoglobin 30.5, Mean Corpuscular Hemoglobin Concent 31.8, Mean Platelet Volume 10.1, Neutrophils (%) (Auto) 66.3, Lymphocytes (%) (Auto) 24.1, Monocytes (%) (Auto) 8.1, Eosinophils (%) (Auto) 0.7, Basophils (%) (Auto) 0.7, Neutrophils # (Auto) 4.50, Lymphocytes # (Auto) 1.64, Monocytes # (Auto) 0.55, Eosinophils # (Auto) 0.05, Basophils # (Auto) 0.05 10/31/16 10:15 Test 10/31/16 10:15 10/31/16 17:10 White Blood Count 6.80 K/uL (4.8-10.8) Red Blood Count 4.69 M/uL (4.2-5.4) Hemoglobin 14.3 g/dL (12.0-16.0) Hematocrit 45.0 % (37-47) Mean Corpuscular Volume 95.9 fL (80-100) Mean Corpuscular Hemoglobin 30.5 pg (25-34) Mean Corpuscular Hemoglobin Concent 31.8 g/dl (32-36) Platelet Count 284 K/uL (130-400) Mean Platelet Volume 10.1 fL (7.4-10.4) Neutrophils (%) (Auto) 66.3 % Lymphocytes (%) (Auto) 24.1 % Monocytes (%) (Auto) 8.1 % Eosinophils (%) (Auto) 0.7 % Basophils (%) (Auto) 0.7 % Neutrophils # (Auto) 4.50 K/uL (1.4-6.5) Lymphocytes # (Auto) 1.64 K/uL (1.2-3.4) Monocytes # (Auto) 0.55 K/uL (0.11-0.59) Eosinophils # (Auto) 0.05 K/uL (0-0.5) Basophils # (Auto) 0.05 K/uL (0-0.2) RDW Standard Deviation 42.4 fL (36.4-46.3) RDW Coefficient of Variation 12.1 % (11.5-14.5) Immature Granulocyte % (Auto) 0.1 % Immature Granulocyte # (Auto) 0.01 K/uL (0.00-0.02) Anion Gap 4.0 mmol/L (3-11) Est Creatinine Clear Calc Drug Dose 51.1 ml/min Estimated GFR () 78.9 Estimated GFR (Non- 68.1 BUN/Creatinine Ratio 19.1 (10-20) Calcium Level 9.2 mg/dl (8.5-10.1) Total Bilirubin 0.7 mg/dl (0.2-1) Direct Bilirubin 0.1 mg/dl (0-0.2) Aspartate Amino Transf (AST/SGOT) 21 U/L (15-37) Alanine Aminotransferase (ALT/SGPT) 37 U/L (12-78) Alkaline Phosphatase 57 U/L (45-117) Total Protein 6.8 gm/dl (6.4-8.2) Albumin 3.7 gm/dl (3.4-5.0) Lipase 208 U/L (73-393) Thyroid Stimulating Hormone (TSH) < 0.005 uIu/ml (0.300-4.500) Thyroxine (T4) 9.3 mcg/dl (4.5-10.9) Free Triiodothyronine 4.27 pg/ml (2.30-4.20) Random Cortisol 13.82 mcg/dl Ethyl Alcohol mg/dL < 3.0 mg/dl (0-3) Urine Opiates Screen NEG (NEG) Urine Methadone, Qualitative NEG (NEG) Urine Barbiturates NEG (NEG) Urine Phencyclidine (PCP) Level NEG (NEG) Ur Amphetamine/Methamphetamine NEG (NEG) MDMA (Ecstasy) Screen NEG (NEG) Urine Benzodiazepines Screen NEG (NEG) Urine Cocaine Metabolite NEG (NEG) Urine Marijuana (THC) NEG (NEG) Problem Qualifiers (1) Depression: Depression Type: major depressive disorder Major depression recurrence: recurrent Major depression episode severity: unspecified
[2016-11-05] MEDS: ESTRADIOL EXT SCH (21:54)
[2016-11-06 07:05] VITALS: BP_SYST 95; BP_SYST 97; BP_DIAS 59; BP_DIAS 63; PULSE 62; PULSE 71; TEMP 36.6
[2016-11-06] MEDS ORDERED: ATR25 PO (09:12)
[2016-11-06] MEDS ORDERED: DULO60CA44 PO (09:12)
[2016-11-06] MEDS ORDERED: LORA-741 PO (09:12)
[2016-11-06] MEDS: TESTOSTERONE EXT SCH (09:16)
[2016-11-06] MEDS: DULOXETINE (CYMBALTA) 30 MG CAP PO SCH (09:17)
[2016-11-06] MEDS: HYDROCORTISONE 10 MG TAB PO SCH (09:17)
[2016-11-06] MEDS: THYROID 162.5 MG PO SCH (09:18)
[2016-11-06] MEDS: PROMETRIUM 100 MG SL SCH (09:19)
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
== END 2016-11-06 12:18 | disposition home or self-care (01) | DRG 885 ==
LOC: ENRESERVTM → ENRESERVDT → C.EDB 09:13 → C.MHU 17:03
PROVIDERS: ADMIT Psychiatry & Neurology Psychiatry; ATTEND Psychiatry & Neurology Psychiatry
DX: F33.9 Major depressive disorder, recurrent, unspecified (principal); E27.40 Unspecified adrenocortical insufficiency; F41.9 Anxiety disorder, unspecified; F50.9 Eating disorder, unspecified; G47.00 Insomnia, unspecified